=== PATIENT | male | born 1955 | race Caucasian/White ===

== ENCOUNTER 2022-04-24 14:23 | Emergency (ER) | payer MEDICARE, OTHER ==
[2022-04-24 14:46] VITALS: BP 154/73
[2022-04-24] MEDS ORDERED: LIDOCAINE 1%-EPI 1:100000 20 ML MDV SUBQ STA (17:06)
--- NOTE | 2022-04-24 17:42 | XRAY Report ---
PROCEDURE: Elbow 3 View RT INDICATIONS: fall/pain TECHNIQUE: 3 views of the elbow were acquired. COMPARISON: None FINDINGS: Bones: No displaced fracture or dislocation. Possible small osteophytes and lateral condyle enthesoph yte. Soft tissues: No significant elbow joint effusion. There is soft tissue swelling and possible injury posterior to the olecranon. IMPRESSION: No acute radiographic abnormality. If there is high concern for occult injury, consider repeat radiog maria del carmen or cross-sectional imaging. Possible soft tissue injury posterior to the olecranon. Reviewed by: Jakub Rodriguez MD on 04/24/2022 4:40 PM [facility] Approved by: Jakub Rodriguez MD on 04/24/2022 4:40 PM [facility] Station ID: [id number]
--- NOTE | 2022-04-24 17:46 | ED Physician Documentation ---
PD HPI UPPER EXT INJURY - Stated complaint Stated Complaint: FALL,ELBOW LAC - Chief complaint Chief Complaint: Laceration - History obtained from History obtained from: Patient - Additonal information Additional information: Patient is a 66-year-old with no significant past medical history presenting for evaluation of injury to right elbow. This afternoon patient tripped in his garage And hit his elbow. He did not hit his head or have LOC.He denies using a blood thinner. He has a small laceration. He believes his tetanus is up-to-date but is not able to pull up a record of it. Review of Systems Constitutional: denies: Fever Cardiac: denies: Chest pain / pressure Respiratory: denies: Dyspnea GI: denies: Abdominal Pain Skin: reports: Laceration (s) Musculoskeletal: reports: Extremity pain Neurologic: denies: Headache PD PAST MEDICAL HISTORY - Allergies Allergies/Adverse Reactions: Allergies Allergy/AdvReac Type Severity Reaction Status Date / Time No Known Drug Allergies Allergy Verified 04/24/22 14:46 PD ED PE NORMAL - General General: Alert and oriented X 3, No acute distress, Well developed/nourished - HEENT HEENT: Atraumatic - Neck Neck: Supple, no meningeal sign, No bony TTP - Cardiac Cardiac: RRR - Respiratory Respiratory: No respiratory distress - Derm Derm: Warm and dry - Extremities Extremities: No tenderness to palpate, Normal ROM s pain (Able to fully extend and flex at the right elbow), Other (1 cm laceration to right elbow; No tenderness distally and forearm or more proximally, intact radial pulse) - Neuro Neuro: Alert and oriented X 3, No motor deficit, Normal speech Results - Vitals Vitals: Vital Signs - 24 hr 04/24/22 14:43 Temperature 36.9 C Heart Rate 72 Respiratory 16 Rate Blood Pressure 154/73 H O2 Saturation 99 Oxygen O2 Source Room air Procedures - Laceration (location) Right elbow Length in cm: 1 Wound type: Linear, Clean Neurovascular status: Sensory intact, Motor intact, Vascular intact Anesthesia: Lidocaine 1% with epi Wound preparation: Chlorhexadine, Irrigated copiously NS Skin layer closure: Interrupted, Size #-0 - enter number (4), Sutures - enter # (2) Other: Patient tolerated well, No complications, Neurovascular intact, Dressing applied, Tetanus UTD PD Medical Decision Making - ED course ED course: Patient presenting for evaluation of a right elbow injury. He has normal range of motion at the joint and no visible deformity other than small laceration.And x-rays negative for fracture or dislocation. The wound was cleaned and s utured.Patient believes his tetanus is up-to-date. Patient counseled on need to return for suture removal as well as concerning symptoms to return for. No injuries noted elsewhere. Departure - Departure Disposition: 01 Home, Self Care Clinical Impression: Laceration of right elbow Qualifiers: Encounter type: initial encounter Qualified Code(s): S51.011A - Laceration without foreign body of right elbow, initial encounter Condition: Stable Instructions: ED Laceration Ext Sutr Stap Tape Comments: You have a laceration to your right elbow that was closed with 2 stitches. Haily hanson should stay in for 1 week and be removed on May 01. He can return to the ER, walk-in clinic or your PCPs office to have these removed. Your elbow x- ray is negative for fracture or other injury. [facility] sure that [facility]to[facility]date. If you have any new or worsening symptoms please consider return to the ER. Discharge Date/Time: 04/24/22 17:59
== END 2022-04-24 17:59 | disposition home or self-care (01) ==
LOC: ED 14:23
DX: S51.011A Laceration without foreign body of right elbow, initial encounter (principal); W18.40XA Slipping, tripping and stumbling without falling, unspecified, initial encounter; Y92.008 Other place in unspecified non-institutional (private) residence as the place of occurrence of the external cause
CPT/HCPCS: 12001; 99283